=== PATIENT | male | born 1990 | race Asian ===

== ENCOUNTER 2024-01-02 05:28 | Day surgery (SDC) | payer OTHER ==
[2024-01-02] VITALS (10 sets, daily range): BP systolic 112–125; BP diastolic 71–91; PULSE 68–76; TEMP 97–97.5
[~2024-01-02] VITALS: Ht 175.3 cm; Wt 91.7 kg
[~2024-01-02 05:28] MED LIST: LR 1,000 ML IV SCH
--- NOTE | 2024-01-02 06:05 | NUR ---
The patient ambulated back to [facility] independently using a steady gait and appeared to tolerate the activity well. Vital signs obtained. Consent signed. 20G IV started in right hand with one stick, LR infusing without difficulty. Assessment completed. Home medications reconcilled. The patient has a hard sided brace in place to his left lower extremity at admit. Call light is within reach. Warm blanket provided. at bedside. Denies any further needs at this time.
[2024-01-02] MEDS ORDERED: fentaNYL 50 MCG/ML 2 ML VIAL ONE (06:14)
[2024-01-02] MEDS ORDERED: Lidocaine PF 2% (20 MG/ML) 5 ML VIAL ONE (06:14)
[2024-01-02] MEDS ORDERED: dexAMETHasone 10 MG/ML VIAL ONE (06:14)
[2024-01-02] MEDS ORDERED: Ondansetron 4 MG/2 ML VIAL ONE (06:14)
[2024-01-02] MEDS ORDERED: Ketorolac 30 MG/ML VIAL IV PRN (06:45)
[2024-01-02] MEDS ORDERED: fentaNYL 50 MCG/ML 2 ML VIAL IV PRN (06:45)
[2024-01-02] MEDS ORDERED: HYDROmorphone 2 MG/1 ML VIAL IV PRN (06:45)
[2024-01-02] MEDS ORDERED: droPERidol 2.5 MG/ML 2 ML VIAL IV PRN (06:45)
[2024-01-02] MEDS ORDERED: Meperidine 50 MG/ML 1 ML VIAL IV PRN (06:45)
[2024-01-02] MEDS ORDERED: hydrALAZINE 20 MG/ML 1 ML VIAL IV PRN (06:45)
[2024-01-02] MEDS ORDERED: Morphine 4 MG/ML VIAL IV PRN (07:30)
[2024-01-02] MEDS ORDERED: Ondansetron 4 MG/2 ML VIAL IV PRN (07:30)
[2024-01-02] MEDS ORDERED: HYDROcodone/Acetaminophen 7.5-325 MG TAB PO PRN (07:30)
--- NOTE | 2024-01-02 10:35 | NUR ---
0830 RETURNS TO ROOM 7 PER CART. DROWSY, AROUSES SPONTANEOUSLY. RESP UNLABORED. HOB ELEVATED 30 DEGREES. FAMILIARIZED WITH SURROUNDINGS. ROSEANNE WRAPPED DRESSING/SPLINT LEFT HAND/FINGERS CLEAN DRY AND INTACT. EXTREMITY ELEVATED ICE PACK IN PLACE. VITAL SIGNS OBTAINED. EXPRESSES COMFORT. CALL LIGHT AT SIDE. IN ROOM 0845 DOZES, AROUSES SPONTANEOUSLY 0900 HOB ELEVATED 70 DEGREES. TOLERATES PO JUICE AND WATER. HERE 0915 CONVERSES WITH 0925 DISCHARGE INSTRUCTIONS REVIEWED. PATIENT AND VERBALIZE UNDERSTANDING. COPY PROVIDED IN DISCHARGE FOLDER 0940 PATIENT EXPRESSES PRESENCE OF NAUSEA, DOESN'T "FEEL GOOD". NO VOMITTING. VITAL SIGNS STABLE. HOB LOWERED TO 30 DEGREES 0955 LIGHTS IN ROOM DIMMED. PATIENT DOZES 1010 HAS BEEN DOZING, AROUSES EASILY. FEELS "MUCH BETTER". HOB ELEVATED 60 DEGREES 1025 AWAKE, ALERT. DENIES NAUSEA. REPORTS MILD DISCOMFORT LEFT HAND. DENIES NEED FOR PAIN MED 1028 SITS ON EDGE OF BED. DRESSES WITH ASSIST FROM . SIMPLE SLING IN PLACE LEFT ARM
== END 2024-01-02 10:35 | disposition home or self-care (01) ==
LOC: SDCO 05:28
DX: S62.637A Displaced fracture of distal phalanx of left little finger, initial encounter for closed fracture (principal); S62.627A Displaced fracture of middle phalanx of left little finger, initial encounter for closed fracture; W21.03XA Struck by baseball, initial encounter; Y93.64 Activity, baseball
CPT/HCPCS: J0665; J0690; J1100; J1170; J1885; J2405; J2704; J3010; J7120